=== PATIENT | male | born 1990 | race Caucasian/White ===

== ENCOUNTER 2018-12-26 14:01 | Emergency (ER) | payer SELFPAY ==
[2018-12-26 16:04] LABS: C. TRACHOMATIS BY PCR NOT DETECTED; N. GONORRHOEAE BY PCR NOT DETECTED
--- NOTE | 2018-12-26 16:24 | EDM.PDOC ---
ED HPI GENERAL MEDICAL PROBLEM - General Chief Complaint: Skin Complaint Stated Complaint: RED SCALY SKIN Time Seen by Provider: 12/26/18 16:01 - History of Present Illness INITIAL COMMENTS - FREE TEXT/NARRATIVE: 28-year-old male presents emergency room with a skin rash on his penis. This started 2 days ago he noticed some itching no burning no pain and he noticed some reddened skin that was scaly. Today he started putting coconut oil over the area and this is helped quite a bit with the itching and took the scaliness away. Patient denies any new sexual contacts. He is not having any urinary symptoms. No other complaints - Related Data Allergies Allergy/AdvReac Type Severity Reaction Status Date / Time No Known Allergies Allergy Verified 12/26/18 14:10 Home Meds: Home Meds . [No Known Home Meds] 07/16/18 [History] Past Medical History - Past Health History Medical/Surgical History: Denies Medical/Surgical History Social & Family History - Tobacco Use Smoking Status *Q: Current Every Day Smoker Years of Tobacco use: 15 Packs/Tins Daily: 0.5 - Caffeine Use Caffeine Use: Reports: Coffee - Recreational Drug Use Recreational Drug Use: No ED ROS GENERAL - Review of Systems Review Of Systems: See Below Constitutional: Reports: No Symptoms Respiratory: Reports: No Symptoms Cardiovascular: Reports: No Symptoms GI/Abdominal: Reports: No Symptoms : Reports: No Symptoms. Denies: Discharge, Dysuria, Frequency, Hematuria, Pain ED EXAM, SKIN/RASH Exam: See Below Exam Limited By: No Limitations General Appearance: Alert, No Apparent Distress Respiratory/Chest: No Respiratory Distress, Lungs Clear, Normal Breath Sounds Cardiovascular: Regular Rate, Rhythm, No Edema, No Murmur (Male) Exam: Other (On the right side of his penis along the shaft he has an area that could be consistent with dry skin there is no blistering or ulcerations. It doesn't have the sensation is an acute herpes type reaction he has some mild itching. This improved considerably with coconut oil) Course - Vital Signs Last Recorded V/S: Last Vital Signs Temp 36.6 C 12/26/18 14:07 Pulse 81 12/26/18 14:07 Resp 16 12/26/18 14:07 BP 117/73 12/26/18 14:07 Pulse Ox 98 12/26/18 14:07 - Orders/Labs/Meds Labs: Laboratory Tests 12/26/18 12/26/18 Range/Units 14:14 15:00 Urine Color Yellow (Yellow) Urine Appearance Clear (Clear) Urine pH 7.0 (5.0-8.0) Ur Specific [place] 1.025 (1.005-1.030) Urine Protein 2+ H (Negative) Urine Glucose (UA) Negative (Negative) Urine Ketones Trace H (Negative) Urine Occult Blood Negative (Negative) Urine Nitrite Negative (Negative) Urine Bilirubin 1+ H (Negative) Urine Urobilinogen 1.0 (0.2-1.0) Ur Leukocyte Esterase Negative (Negative) Urine RBC 0-5 (0-5) /hpf Urine WBC 0-5 (0-5) /hpf Ur Epithelial Cells 0-5 (0-5) /hpf Urine Bacteria Few (FEW) /hpf Urine Mucus Few (FEW) /hpf C trachomatis DNA (PCR) Not detected N gonorrhoeae DNA (PCR) Not detected - Re-Assessments/Exams Free Text/Narrative Re-Assessment/Exam: 12/26/18 16:40 Other than the skin changes exam is unremarkable. It sounds like it is not an STD or other pathology at this point using a good skin moisturizer with close follow-up is reasonable. Discussed this as well as the possibility of further testing and patient agrees to follow-up in the clinic this week to make sure things are improving. Departure - Departure Time of Disposition: 16:35 Disposition: Home, Self-Care 01 Clinical Impression: Dry skin - Discharge Information Referrals: PCP,None [Primary Care Provider] - Forms: ED Department Discharge Additional Instructions: Return to the emergency room with any questions problems worsening symptoms. Follow-up at the Hospital clinic at the end of this week for recheck to make sure things are getting better. Use a good skin moisturizer several times daily and avoid using soaps to the area.
== END 2018-12-26 17:09 | disposition home or self-care (01) ==
LOC: JD.ED 14:01
DX: L85.3 Xerosis cutis (principal); F17.210 Nicotine dependence, cigarettes, uncomplicated
CPT/HCPCS: 81001; 87491; 87591; 99281; 99283